=== PATIENT | female | born 1955 | race African-American/Black ===

== ENCOUNTER 2016-02-13 12:45 | Outpatient (CLI) | payer MEDICAID ==
[~2016-02-13] VITALS: Ht 165.1 cm; Wt 69.5 kg
[~2016-02-13 12:45] MED LIST: DESYREL 50MG50 MG PO; IMODIUM A-D2 MG PO; PURINETHOL 50MG50 MG PO; WELLBUTRIN XL150 MG PO; ZOFRAN 4MG T4 MG/TAB PO
[2016-02-13 13:32] LABS: MEAN CELL VOLUME 113 fl (80.0-100.0); MEAN CORPUSCULAR HGB CONC 33 g/dl (33.0-37.0); PLATELET COUNT 271 K/mm3 (130-400); REDCELL DISTRIBUTION WIDTH-CV 15.6 % (11.5-14.5); WHITE BLOOD COUNT 2.1 K/mm3 (4.8-10.8)
[2016-02-13 13:54] LABS: BILIRUBIN,DIRECT 0.4 mg/dL (0.0-0.4); BILIRUBIN,TOTAL 0.9 mg/dL (0.0-1.0); TOTAL PROTEIN 7.4 gm/dL (6.4-8.2)
[2016-02-13 13:55] LABS: HEMATOCRIT 31.6 % (37.0-47.0); HEMOGLOBIN 10.4 g/dl (12.5-16.0); MEAN CORPUSCULAR HEMOGLOBIN 37 pg (27.0-31.0)
[2016-02-13 14:33] VITALS: BP 114/65; PULSE 65; TEMP 98
== END 2016-02-13 16:11 | disposition home or self-care (01) ==
LOC: EUO 12:45
PROVIDERS: Internal Medicine Gastroenterology
DX: K50.80 Crohn's disease of both small and large intestine without complications (principal)
CPT/HCPCS: J3380; J7050

== ENCOUNTER → 2016-02-26 | Outpatient (CLI) | payer MEDICAID ==
[~2016-02-26] MED LIST changes: +PROTONIX20 MG PO
== END ==
LOC: COL.RAD 07:43
DX: N28.1 Cyst of kidney, acquired (principal); R10.13 Epigastric pain; K50.90 Crohn's disease, unspecified, without complications

== ENCOUNTER → 2016-03-30 | Outpatient (CLI) | payer MEDICAID | LOC: COL.RAD 07:04 | DX: K50.80 Crohn's disease of both small and large intestine without complications (principal) | CPT/HCPCS: Q9967 ==

== ENCOUNTER 2016-04-09 12:39 | Outpatient (CLI) | payer MEDICAID ==
[~2016-04-09] VITALS: Ht 165.1 cm; Wt 70.0 kg
[~2016-04-09 12:39] MED LIST changes: -PROTONIX20 MG PO
[2016-04-09 13:51] LABS: ALBUMIN 4.3 gm/dL (3.5-5.0); BILIRUBIN,DIRECT 0.3 mg/dL (0.0-0.4); BILIRUBIN,TOTAL 0.9 mg/dL (0.0-1.0); TOTAL PROTEIN 8.2 gm/dL (6.4-8.2)
[2016-04-09 13:54] LABS: MEAN CORPUSCULAR HGB CONC 33 g/dl (33.0-37.0); MEAN PLATELET VOLUME 9.1 fl (7.4-10.4); PLATELET COUNT 252 K/mm3 (130-400); RED BLOOD COUNT 2.91 M/mm3 (4.10-5.30); REDCELL DISTRIBUTION WIDTH-CV 14.6 % (11.5-14.5); WHITE BLOOD COUNT 2.3 K/mm3 (4.8-10.8)
[2016-04-09 13:56] LABS: HEMATOCRIT 32.3 % (37.0-47.0); HEMOGLOBIN 10.8 g/dl (12.5-16.0); MEAN CELL VOLUME 111 fl (80.0-100.0); MEAN CORPUSCULAR HEMOGLOBIN 37 pg (27.0-31.0)
[2016-04-09 14:48] VITALS: BP 115/62; PULSE 65; TEMP 98.2
== END 2016-04-09 15:35 | disposition home or self-care (01) ==
LOC: EUO 12:39
PROVIDERS: Internal Medicine Gastroenterology
DX: K50.80 Crohn's disease of both small and large intestine without complications (principal)
CPT/HCPCS: J3380; J7050

== ENCOUNTER 2016-06-09 09:54 | Outpatient (CLI) | payer MEDICAID ==
[~2016-06-09] VITALS: Ht 165.1 cm; Wt 72.7 kg
[2016-06-09 10:40] LABS: ALBUMIN 3.6 gm/dL (3.5-5.0); BILIRUBIN,TOTAL 1.2 mg/dL (0.0-1.0); TOTAL PROTEIN 6.7 gm/dL (6.4-8.2)
[2016-06-09 10:42] LABS: MEAN CELL VOLUME 116 fl (80.0-100.0); MEAN CORPUSCULAR HGB CONC 33 g/dl (33.0-37.0); MEAN PLATELET VOLUME 9.1 fl (7.4-10.4); PLATELET COUNT 285 K/mm3 (130-400); RED BLOOD COUNT 2.57 M/mm3 (4.10-5.30); REDCELL DISTRIBUTION WIDTH-CV 16.4 % (11.5-14.5); WHITE BLOOD COUNT 2.4 K/mm3 (4.8-10.8)
[2016-06-09 10:59] LABS: BILIRUBIN,DIRECT 0.4 mg/dL (0.0-0.4); HEMATOCRIT 29.7 % (37.0-47.0); HEMOGLOBIN 9.8 g/dl (12.5-16.0); MEAN CORPUSCULAR HEMOGLOBIN 38 pg (27.0-31.0)
[2016-06-09 11:40] VITALS: BP 122/63; PULSE 51; TEMP 98.4
== END 2016-06-09 14:08 | disposition home or self-care (01) ==
LOC: EUO 09:54
PROVIDERS: Internal Medicine Gastroenterology
DX: K50.80 Crohn's disease of both small and large intestine without complications (principal)
CPT/HCPCS: J3380; J7050

== ENCOUNTER 2016-08-05 09:34 | Outpatient (CLI) | payer MEDICAID ==
[~2016-08-05] VITALS: Ht 165.1 cm; Wt 70.4 kg
[2016-08-05 10:08] LABS: MEAN CELL VOLUME 106 fl (80.0-100.0); MEAN CORPUSCULAR HGB CONC 33 g/dl (33.0-37.0); MEAN PLATELET VOLUME 9.7 fl (7.4-10.4); PLATELET COUNT 277 K/mm3 (130-400); RED BLOOD COUNT 3.28 M/mm3 (4.10-5.30); REDCELL DISTRIBUTION WIDTH-CV 14.5 % (11.5-14.5); WHITE BLOOD COUNT 4.4 K/mm3 (4.8-10.8)
[2016-08-05 10:09] LABS: HEMATOCRIT 34.7 % (37.0-47.0); HEMOGLOBIN 11.4 g/dl (12.5-16.0); MEAN CORPUSCULAR HEMOGLOBIN 35 pg (27.0-31.0)
[2016-08-05] MEDS ORDERED: PROTONIX20 MG PO (10:11)
[2016-08-05 10:13] VITALS: BP 123/73; PULSE 77; TEMP 98.1
[2016-08-05 10:22] LABS: ALBUMIN 4.2 gm/dL (3.5-5.0); BILIRUBIN,DIRECT 0.6 mg/dL (0.0-0.4); BILIRUBIN,TOTAL 0.6 mg/dL (0.0-1.0); TOTAL PROTEIN 8.5 gm/dL (6.4-8.2)
== END 2016-08-05 11:57 | disposition home or self-care (01) ==
LOC: EUO 09:34
PROVIDERS: Internal Medicine Gastroenterology
DX: K50.80 Crohn's disease of both small and large intestine without complications (principal); Z79.899 Other long term (current) drug therapy
CPT/HCPCS: J3380; J7050

== ENCOUNTER → 2016-08-18 | Outpatient (CLI) | payer MEDICAID ==
[~2016-08-18] MED LIST changes: +PROTONIX20 MG PO
== END ==
LOC: MC.RAD 11:30
DX: Z12.31 Encounter for screening mammogram for malignant neoplasm of breast (principal)

== ENCOUNTER 2016-09-29 09:38 | Outpatient (CLI) | payer MEDICAID ==
[~2016-09-29] VITALS: Ht 165.1 cm; Wt 71.1 kg
[2016-09-29 10:15] LABS: HEMATOCRIT 32.3 % (37.0-47.0); HEMOGLOBIN 10.3 g/dl (12.5-16.0); MEAN CELL VOLUME 99 fl (80.0-100.0); MEAN CORPUSCULAR HEMOGLOBIN 31 pg (27.0-31.0); MEAN CORPUSCULAR HGB CONC 32 g/dl (33.0-37.0); MEAN PLATELET VOLUME 10.2 fl (7.4-10.4); PLATELET COUNT 191 K/mm3 (130-400); RED BLOOD COUNT 3.27 M/mm3 (4.10-5.30); WHITE BLOOD COUNT 3.1 K/mm3 (4.8-10.8)
[2016-09-29 11:14] LABS: ALBUMIN 4.1 gm/dL (3.5-5.0); TOTAL PROTEIN 7.9 gm/dL (6.4-8.2)
[2016-09-29 11:21] VITALS: BP 139/76; PULSE 64; TEMP 98.2
[2016-09-29 11:32] LABS: BILIRUBIN,TOTAL 0.6 mg/dL (0.0-1.0)
== END 2016-09-29 12:25 | disposition home or self-care (01) ==
LOC: EUO 09:38
PROVIDERS: Internal Medicine Gastroenterology
DX: K50.80 Crohn's disease of both small and large intestine without complications (principal); Z79.899 Other long term (current) drug therapy
CPT/HCPCS: J3380; J7050

== ENCOUNTER → 2016-12-01 | Outpatient (CLI) | payer MEDICAID ==
[~2016-12-01] VITALS: Ht 165.1 cm; Wt 69.6 kg
[2016-12-01 13:53] LABS: MEAN CELL VOLUME 96 fl (80.0-100.0); MEAN CORPUSCULAR HGB CONC 32 g/dl (33.0-37.0); MEAN PLATELET VOLUME 9.6 fl (7.4-10.4); PLATELET COUNT 188 K/mm3 (130-400); RED BLOOD COUNT 3.74 M/mm3 (4.10-5.30); WHITE BLOOD COUNT 3.5 K/mm3 (4.8-10.8)
[2016-12-01 13:56] LABS: HEMATOCRIT 35.8 % (37.0-47.0); HEMOGLOBIN 11.4 g/dl (12.5-16.0); MEAN CORPUSCULAR HEMOGLOBIN 30 pg (27.0-31.0)
[2016-12-01 14:03] LABS: ALBUMIN 3.9 gm/dL (3.5-5.0); BILIRUBIN UNCONJUGATED 0.3 mg/dL (0.0-1.1); BILIRUBIN,DIRECT 0.2 mg/dL (0.0-0.4); BILIRUBIN,TOTAL 0.5 mg/dL (0.0-1.0); TOTAL PROTEIN 7.6 gm/dL (6.4-8.2)
[2016-12-01 15:00] VITALS: BP 132/69; PULSE 77; TEMP 98.4
== END ==
LOC: EUO 10-06 10:00
PROVIDERS: Internal Medicine Gastroenterology
DX: K50.80 Crohn's disease of both small and large intestine without complications (principal); Z79.899 Other long term (current) drug therapy
CPT/HCPCS: J3380; J7050

== ENCOUNTER 2017-02-02 12:08 | Outpatient (CLI) | payer MEDICAID ==
[2017-02-02 12:38] LABS: HEMATOCRIT 37.5 % (37.0-47.0); MEAN CELL VOLUME 97 fl (80.0-100.0); MEAN CORPUSCULAR HEMOGLOBIN 30 pg (27.0-31.0); MEAN CORPUSCULAR HGB CONC 31 g/dl (33.0-37.0); MEAN PLATELET VOLUME 9.1 fl (7.4-10.4); PLATELET COUNT 182 K/mm3 (130-400); RED BLOOD COUNT 3.87 M/mm3 (4.10-5.30); WHITE BLOOD COUNT 2.8 K/mm3 (4.8-10.8)
[2017-02-02 12:42] LABS: HEMOGLOBIN 11.7 g/dl (12.5-16.0)
[2017-02-02 13:00] LABS: ALBUMIN 4.1 gm/dL (3.5-5.0); TOTAL PROTEIN 7.7 gm/dL (6.4-8.2)
[2017-02-02 13:02] LABS: BILIRUBIN UNCONJUGATED 0.4 mg/dL (0.0-1.1); BILIRUBIN,DIRECT 0.2 mg/dL (0.0-0.4); BILIRUBIN,TOTAL 0.6 mg/dL (0.0-1.0)
[2017-02-02 14:09] VITALS: BP 147/71; PULSE 52; TEMP 97.9
== END 2017-02-02 14:45 | disposition home or self-care (01) ==
LOC: EUO 12:08
PROVIDERS: Internal Medicine Gastroenterology
DX: K50.80 Crohn's disease of both small and large intestine without complications (principal); Z79.899 Other long term (current) drug therapy
CPT/HCPCS: J3380; J7050

== ENCOUNTER 2017-04-04 12:41 | Outpatient (CLI) | payer MEDICAID ==
[~2017-04-04] VITALS: Ht 165.1 cm; Wt 66.8 kg
[2017-04-04 13:19] LABS: HEMATOCRIT 39.7 % (37.0-47.0); HEMOGLOBIN 12.3 g/dl (12.5-16.0); MEAN CELL VOLUME 100 fl (80.0-100.0); MEAN CORPUSCULAR HEMOGLOBIN 31 pg (27.0-31.0); MEAN CORPUSCULAR HGB CONC 31 g/dl (33.0-37.0); MEAN PLATELET VOLUME 9.5 fl (7.4-10.4); PLATELET COUNT 169 K/mm3 (130-400); RED BLOOD COUNT 3.99 M/mm3 (4.10-5.30); REDCELL DISTRIBUTION WIDTH-CV 14.1 % (11.5-14.5)
[2017-04-04 13:21] VITALS: BP 144/72; PULSE 61; TEMP 98
[2017-04-04 13:39] LABS: ALBUMIN 3.9 gm/dL (3.5-5.0); BILIRUBIN UNCONJUGATED 0.4 mg/dL (0.0-1.1); BILIRUBIN,DIRECT 0.2 mg/dL (0.0-0.4); BILIRUBIN,TOTAL 0.6 mg/dL (0.0-1.0); TOTAL PROTEIN 7.5 gm/dL (6.4-8.2)
== END 2017-04-04 15:35 | disposition home or self-care (01) ==
LOC: EUO 12:41
PROVIDERS: Internal Medicine Gastroenterology
DX: K50.80 Crohn's disease of both small and large intestine without complications (principal)
CPT/HCPCS: J3380; J7050

== ENCOUNTER 2017-05-30 12:32 | Outpatient (CLI) | payer MEDICAID ==
[~2017-05-30] VITALS: Ht 165.1 cm; Wt 63.0 kg
[2017-05-30 12:53] LABS: HEMATOCRIT 42.7 % (37.0-47.0); HEMOGLOBIN 14.2 g/dl (12.5-16.0); MEAN CELL VOLUME 98 fl (80.0-100.0); MEAN CORPUSCULAR HEMOGLOBIN 32 pg (27.0-31.0); MEAN CORPUSCULAR HGB CONC 33 g/dl (33.0-37.0); MEAN PLATELET VOLUME 9.5 fl (7.4-10.4); PLATELET COUNT 217 K/mm3 (130-400); RED BLOOD COUNT 4.38 M/mm3 (4.10-5.30); REDCELL DISTRIBUTION WIDTH-CV 14.4 % (11.5-14.5)
[2017-05-30 12:56] VITALS: BP 125/74; PULSE 67; TEMP 97.8
[2017-05-30 13:02] LABS: ALBUMIN 4.3 gm/dL (3.5-5.0); BILIRUBIN UNCONJUGATED 0.3 mg/dL (0.0-1.1); BILIRUBIN,DIRECT 0.2 mg/dL (0.0-0.4); BILIRUBIN,TOTAL 0.6 mg/dL (0.0-1.0); TOTAL PROTEIN 8.6 gm/dL (6.4-8.2)
== END 2017-05-30 15:03 | disposition home or self-care (01) ==
LOC: EUO 12:32
PROVIDERS: Internal Medicine Gastroenterology
DX: K50.80 Crohn's disease of both small and large intestine without complications (principal); Z79.899 Other long term (current) drug therapy
CPT/HCPCS: J3380; J7050

== ENCOUNTER → 2017-06-28 | Outpatient (CLI) | payer MEDICAID | LOC: COL.RAD 08:46 | DX: N28.89 Other specified disorders of kidney and ureter (principal); K50.80 Crohn's disease of both small and large intestine without complications | CPT/HCPCS: Q9967 ==

== ENCOUNTER 2017-07-19 12:34 | Day surgery (SDC) | payer MEDICAID ==
[~2017-07-19] VITALS: Ht 165.1 cm; Wt 62.2 kg
[2017-07-19 13:17] VITALS: BP 120/79; PULSE 93; TEMP 98.3
[2017-07-19] MEDS ORDERED: BENTYL 10MG10 MG/CAP PO (13:17)
[2017-07-19 14:40] VITALS: BP 113/68; PULSE 66; TEMP 97.5
[2017-07-19 14:55] VITALS: BP 117/71; PULSE 66
[2017-07-19 15:10] VITALS: BP 125/82; PULSE 61
== END 2017-07-19 15:32 | disposition home or self-care (01) ==
LOC: SDCO 12:34
DX: K52.89 Other specified noninfective gastroenteritis and colitis (principal); K50.119 Crohn's disease of large intestine with unspecified complications; K63.89 Other specified diseases of intestine; K64.4 Residual hemorrhoidal skin tags; R19.7 Diarrhea, unspecified; K21.9 Gastro-esophageal reflux disease without esophagitis; G43.909 Migraine, unspecified, not intractable, without status migrainosus; F17.210 Nicotine dependence, cigarettes, uncomplicated; F32.9 Major depressive disorder, single episode, unspecified; Z90.710 Acquired absence of both cervix and uterus; Z90.49 Acquired absence of other specified parts of digestive tract
CPT/HCPCS: OP; J2704; J3010; J7030

== ENCOUNTER 2017-07-29 08:55 | Outpatient (CLI) | payer MEDICAID ==
[~2017-07-29] VITALS: Ht 165.1 cm; Wt 63.4 kg
[~2017-07-29 08:55] MED LIST changes: +BENTYL 10MG10 MG/CAP PO
[2017-07-29 09:46] LABS: HEMATOCRIT 43.1 % (37.0-47.0); HEMOGLOBIN 14.1 g/dl (12.5-16.0); MEAN CELL VOLUME 98 fl (80.0-100.0); MEAN CORPUSCULAR HEMOGLOBIN 32 pg (27.0-31.0); MEAN CORPUSCULAR HGB CONC 33 g/dl (33.0-37.0); MEAN PLATELET VOLUME 9.4 fl (7.4-10.4); PLATELET COUNT 208 K/mm3 (130-400); RED BLOOD COUNT 4.42 M/mm3 (4.10-5.30); REDCELL DISTRIBUTION WIDTH-CV 13.9 % (11.5-14.5)
[2017-07-29 09:54] LABS: ALBUMIN 4.2 gm/dL (3.5-5.0); BILIRUBIN,TOTAL 0.3 mg/dL (0.0-1.0); TOTAL PROTEIN 8.9 gm/dL (6.4-8.2)
[2017-07-29 10:00] VITALS: BP 112/72; PULSE 69; TEMP 97.7
[2017-07-29 10:20] LABS: BILIRUBIN UNCONJUGATED 0.2 mg/dL (0.0-1.1); BILIRUBIN,DIRECT 0.3 mg/dL (0.0-0.4)
== END 2017-07-29 10:41 | disposition home or self-care (01) ==
LOC: EUO 08:55
PROVIDERS: Internal Medicine Gastroenterology
DX: K50.80 Crohn's disease of both small and large intestine without complications (principal)
CPT/HCPCS: J3380; J7050

== ENCOUNTER → 2017-08-23 | Outpatient (CLI) | payer MEDICAID | LOC: MC.RAD 10:21 | DX: Z12.31 Encounter for screening mammogram for malignant neoplasm of breast (principal) ==

== ENCOUNTER 2017-09-23 12:34 | Outpatient (CLI) | payer MEDICAID ==
[~2017-09-23] VITALS: Ht 165.1 cm; Wt 62.7 kg
[2017-09-23 13:40] LABS: HEMATOCRIT 42.4 % (37.0-47.0); HEMOGLOBIN 13.9 g/dl (12.5-16.0); MEAN CELL VOLUME 99 fl (80.0-100.0); MEAN CORPUSCULAR HEMOGLOBIN 33 pg (27.0-31.0); MEAN CORPUSCULAR HGB CONC 33 g/dl (33.0-37.0); MEAN PLATELET VOLUME 8.9 fl (7.4-10.4); PLATELET COUNT 179 K/mm3 (130-400); RED BLOOD COUNT 4.28 M/mm3 (4.10-5.30); REDCELL DISTRIBUTION WIDTH-CV 13.2 % (11.5-14.5)
[2017-09-23 13:51] LABS: ALBUMIN 4.1 gm/dL (3.5-5.0); BILIRUBIN UNCONJUGATED 0.4 mg/dL (0.0-1.1); BILIRUBIN,DIRECT 0.2 mg/dL (0.0-0.4); BILIRUBIN,TOTAL 0.5 mg/dL (0.0-1.0); TOTAL PROTEIN 7.9 gm/dL (6.4-8.2)
== END 2017-09-23 15:43 | disposition home or self-care (01) ==
LOC: EUO 12:34
PROVIDERS: Internal Medicine Gastroenterology
DX: K50.80 Crohn's disease of both small and large intestine without complications (principal); Z79.899 Other long term (current) drug therapy
CPT/HCPCS: J3380; J7050

== ENCOUNTER 2017-11-22 13:46 | Outpatient (CLI) | payer MEDICAID ==
[2017-11-22 14:30] LABS: HEMATOCRIT 42.5 % (37.0-47.0); HEMOGLOBIN 13.6 g/dl (12.5-16.0); MEAN CELL VOLUME 102 fl (80.0-100.0); MEAN CORPUSCULAR HEMOGLOBIN 33 pg (27.0-31.0); MEAN CORPUSCULAR HGB CONC 32 g/dl (33.0-37.0); MEAN PLATELET VOLUME 9.7 fl (7.4-10.4); PLATELET COUNT 171 K/mm3 (130-400); RED BLOOD COUNT 4.15 M/mm3 (4.10-5.30); REDCELL DISTRIBUTION WIDTH-CV 13.3 % (11.5-14.5)
[2017-11-22 14:41] LABS: BILIRUBIN UNCONJUGATED 0.4 mg/dL (0.0-1.1); BILIRUBIN,DIRECT 0.1 mg/dL (0.0-0.4); BILIRUBIN,TOTAL 0.5 mg/dL (0.0-1.0); TOTAL PROTEIN 7.7 gm/dL (6.4-8.2)
[2017-11-22 15:30] VITALS: BP 123/66; PULSE 64; TEMP 98
== END 2017-11-22 18:00 | disposition home or self-care (01) ==
LOC: EUO 13:46
PROVIDERS: Internal Medicine Gastroenterology
DX: K50.80 Crohn's disease of both small and large intestine without complications (principal)
CPT/HCPCS: J3380; J7050

== ENCOUNTER 2018-01-24 13:00 | Outpatient (RCR) | payer MEDICAID ==
[~2018-01-24] VITALS: Ht 165.1 cm; Wt 64.8 kg
[2018-01-24 13:43] LABS: HEMATOCRIT 44.4 % (37.0-47.0); HEMOGLOBIN 14.5 g/dl (12.5-16.0); MEAN CELL VOLUME 101 fl (80.0-100.0); MEAN CORPUSCULAR HEMOGLOBIN 33 pg (27.0-31.0); MEAN CORPUSCULAR HGB CONC 33 g/dl (33.0-37.0); MEAN PLATELET VOLUME 9.3 fl (7.4-10.4); PLATELET COUNT 221 K/mm3 (130-400); RED BLOOD COUNT 4.39 M/mm3 (4.10-5.30)
[2018-01-24 13:55] LABS: ALBUMIN 4.4 gm/dL (3.5-5.0); BILIRUBIN UNCONJUGATED 0.4 mg/dL (0.0-1.1); BILIRUBIN,DIRECT 0.2 mg/dL (0.0-0.4); BILIRUBIN,TOTAL 0.6 mg/dL (0.0-1.0); TOTAL PROTEIN 8.3 gm/dL (6.4-8.2)
[2018-01-24 14:35] VITALS: BP 123/68; PULSE 72; TEMP 97.9
[2018-01-24 14:45] VITALS: BP 122/62; PULSE 70; TEMP 97.9
[2018-01-24 14:55] VITALS: BP 114/64; PULSE 73; TEMP 97.9
[2018-01-24 15:05] VITALS: BP 112/62; PULSE 70; TEMP 97.9
[2018-01-24 15:15] VITALS: BP 115/62; PULSE 75; TEMP 97.9
== END 2018-01-24 16:30 | disposition home or self-care (01) ==
LOC: EUO 13:00
PROVIDERS: Internal Medicine Gastroenterology
DX: K50.80 Crohn's disease of both small and large intestine without complications (principal)
CPT/HCPCS: J3380; J7050

== ENCOUNTER 2018-03-22 12:57 | Outpatient (CLI) | payer MEDICAID ==
[~2018-03-22] VITALS: Ht 165.1 cm; Wt 65.5 kg
[2018-03-22 13:20] LABS: HEMATOCRIT 45.4 % (37.0-47.0); HEMOGLOBIN 14.5 g/dl (12.5-16.0); MEAN CELL VOLUME 102 fl (80.0-100.0); MEAN CORPUSCULAR HEMOGLOBIN 33 pg (27.0-31.0); MEAN CORPUSCULAR HGB CONC 32 g/dl (33.0-37.0); MEAN PLATELET VOLUME 9.2 fl (7.4-10.4); PLATELET COUNT 187 K/mm3 (130-400); RED BLOOD COUNT 4.46 M/mm3 (4.10-5.30)
[2018-03-22 13:40] LABS: ALBUMIN 4.3 gm/dL (3.5-5.0); BILIRUBIN UNCONJUGATED 0.3 mg/dL (0.0-1.1); BILIRUBIN,DIRECT 0.1 mg/dL (0.0-0.4); BILIRUBIN,TOTAL 0.4 mg/dL (0.0-1.0)
[2018-03-22 14:06] VITALS: BP 123/59; PULSE 73; TEMP 98.1
== END 2018-03-22 14:51 | disposition home or self-care (01) ==
LOC: EUO 12:57
PROVIDERS: Internal Medicine Gastroenterology
DX: K50.80 Crohn's disease of both small and large intestine without complications (principal); Z79.899 Other long term (current) drug therapy
CPT/HCPCS: J3380; J7050

== ENCOUNTER 2018-05-17 12:44 | Outpatient (CLI) | payer MEDICAID ==
[~2018-05-17] VITALS: Ht 165.1 cm; Wt 69.5 kg
[2018-05-17 13:20] LABS: HEMATOCRIT 40.8 % (37.0-47.0); HEMOGLOBIN 13.3 g/dl (12.5-16.0); MEAN CELL VOLUME 101 fl (80.0-100.0); MEAN CORPUSCULAR HEMOGLOBIN 33 pg (27.0-31.0); MEAN CORPUSCULAR HGB CONC 33 g/dl (33.0-37.0); MEAN PLATELET VOLUME 8.9 fl (7.4-10.4); PLATELET COUNT 181 K/mm3 (130-400); RED BLOOD COUNT 4.06 M/mm3 (4.10-5.30); REDCELL DISTRIBUTION WIDTH-CV 13.2 % (11.5-14.5)
[2018-05-17 13:30] LABS: ALBUMIN 3.9 gm/dL (3.5-5.0); BILIRUBIN UNCONJUGATED 0.4 mg/dL (0.0-1.1); BILIRUBIN,DIRECT 0.1 mg/dL (0.0-0.4); BILIRUBIN,TOTAL 0.4 mg/dL (0.0-1.0); TOTAL PROTEIN 7.4 gm/dL (6.4-8.2)
[2018-05-17 13:38] VITALS: BP 108/63; PULSE 67; TEMP 98
== END 2018-05-17 15:10 | disposition home or self-care (01) ==
LOC: EUO 12:44
PROVIDERS: Internal Medicine Gastroenterology
DX: K50.80 Crohn's disease of both small and large intestine without complications (principal); Z79.899 Other long term (current) drug therapy
CPT/HCPCS: J3380; J7050

== ENCOUNTER 2018-07-19 14:56 | Outpatient (CLI) | payer MEDICAID ==
[~2018-07-19] VITALS: Ht 165.1 cm; Wt 64.0 kg
[2018-07-19 15:10] VITALS: BP 93/60; PULSE 76; TEMP 98.1
[2018-07-19 15:19] LABS: HEMATOCRIT 48.5 % (37.0-47.0); MEAN CELL VOLUME 99 fl (80.0-100.0); MEAN CORPUSCULAR HEMOGLOBIN 33 pg (27.0-31.0); MEAN CORPUSCULAR HGB CONC 33 g/dl (33.0-37.0); PLATELET COUNT 203 K/mm3 (130-400); RED BLOOD COUNT 4.89 M/mm3 (4.10-5.30); REDCELL DISTRIBUTION WIDTH-CV 12.9 % (11.5-14.5)
[2018-07-19 16:40] VITALS: BP 96/53; PULSE 64
[2018-07-19] MEDS ORDERED: ADVIL200 MG PO (16:40)
== END 2018-07-19 16:41 | disposition home or self-care (01) ==
LOC: EUO 14:56
PROVIDERS: Internal Medicine Gastroenterology
DX: K50.80 Crohn's disease of both small and large intestine without complications (principal); Z79.899 Other long term (current) drug therapy
CPT/HCPCS: J3380; J7050

== ENCOUNTER 2018-09-13 14:12 | Outpatient (CLI) | payer MEDICAID ==
[~2018-09-13] VITALS: Ht 165.1 cm; Wt 63.2 kg
[~2018-09-13 14:12] MED LIST changes: +ADVIL200 MG PO
[2018-09-13 15:17] LABS: HEMATOCRIT 43.7 % (37.0-47.0); HEMOGLOBIN 14.3 g/dl (12.5-16.0); MEAN CELL VOLUME 101 fl (80.0-100.0); MEAN CORPUSCULAR HEMOGLOBIN 33 pg (27.0-31.0); MEAN CORPUSCULAR HGB CONC 33 g/dl (33.0-37.0); MEAN PLATELET VOLUME 8.9 fl (7.4-10.4); PLATELET COUNT 154 K/mm3 (130-400); RED BLOOD COUNT 4.32 M/mm3 (4.10-5.30); REDCELL DISTRIBUTION WIDTH-CV 13.3 % (11.5-14.5)
[2018-09-13 15:27] LABS: ALBUMIN 3.9 gm/dL (3.5-5.0); BILIRUBIN UNCONJUGATED 0.6 mg/dL (0.0-1.1); BILIRUBIN,TOTAL 0.5 mg/dL (0.0-1.0); TOTAL PROTEIN 7.7 gm/dL (6.4-8.2)
[2018-09-13 16:07] VITALS: BP 104/69; PULSE 71; TEMP 97.6
[2018-09-13] MEDS ORDERED: VITAMIN D 50,1.25 MG PO (16:10)
[2018-09-13] MEDS ORDERED: ANTIVERT 25MG25 MG PO (16:11)
== END 2018-09-13 17:04 | disposition home or self-care (01) ==
LOC: EUO 14:12
PROVIDERS: Internal Medicine Gastroenterology
DX: K50.80 Crohn's disease of both small and large intestine without complications (principal); Z79.899 Other long term (current) drug therapy
CPT/HCPCS: J3380; J7050

== ENCOUNTER → 2018-10-12 | Outpatient (CLI) | payer MEDICAID ==
[~2018-10-12] MED LIST changes: +ANTIVERT 25MG25 MG PO; +VITAMIN D 50,1.25 MG PO
== END ==
LOC: MC.RAD 10-02 11:15
DX: Z12.31 Encounter for screening mammogram for malignant neoplasm of breast (principal)

== ENCOUNTER 2018-11-15 10:53 | Outpatient (CLI) | payer MEDICAID ==
[~2018-11-15] VITALS: Ht 165.1 cm; Wt 64.0 kg
[2018-11-15 11:27] VITALS: BP 118/71; PULSE 69; TEMP 97.7
[2018-11-15 11:32] LABS: ALBUMIN 4.6 gm/dL (3.5-5.0); BILIRUBIN UNCONJUGATED 0.5 mg/dL (0.0-1.1); BILIRUBIN,DIRECT 0.1 mg/dL (0.0-0.4); BILIRUBIN,TOTAL 0.5 mg/dL (0.0-1.0); TOTAL PROTEIN 8.5 gm/dL (6.4-8.2)
[2018-11-15 11:36] LABS: HEMATOCRIT 45.2 % (37.0-47.0); HEMOGLOBIN 14.5 g/dl (12.5-16.0); MEAN CELL VOLUME 103 fl (80.0-100.0); MEAN CORPUSCULAR HEMOGLOBIN 33 pg (27.0-31.0); MEAN CORPUSCULAR HGB CONC 32 g/dl (33.0-37.0); MEAN PLATELET VOLUME 9.4 fl (7.4-10.4); PLATELET COUNT 209 K/mm3 (130-400); REDCELL DISTRIBUTION WIDTH-CV 13.3 % (11.5-14.5)
== END 2018-11-15 15:21 | disposition home or self-care (01) ==
LOC: EUO 10:53
PROVIDERS: Internal Medicine Gastroenterology
DX: K50.80 Crohn's disease of both small and large intestine without complications (principal); Z79.899 Other long term (current) drug therapy
CPT/HCPCS: J3380; J7050

== ENCOUNTER 2019-01-10 10:45 | Outpatient (CLI) | payer MEDICAID ==
[~2019-01-10] VITALS: Ht 165.1 cm; Wt 66.0 kg
[2019-01-10 11:15] LABS: HEMATOCRIT 43.3 % (37.0-47.0); HEMOGLOBIN 14.1 g/dl (12.5-16.0); MEAN CELL VOLUME 100 fl (80.0-100.0); MEAN CORPUSCULAR HEMOGLOBIN 33 pg (27.0-31.0); MEAN CORPUSCULAR HGB CONC 33 g/dl (33.0-37.0); MEAN PLATELET VOLUME 8.8 fl (7.4-10.4); PLATELET COUNT 198 K/mm3 (130-400); RED BLOOD COUNT 4.32 M/mm3 (4.10-5.30); REDCELL DISTRIBUTION WIDTH-CV 12.6 % (11.5-14.5)
[2019-01-10 11:40] VITALS: BP 98/60; PULSE 71; TEMP 97.7
--- NOTE | 2019-01-10 12:50 | NUR ---
Pt bette Entyvio well. Pt discharged per ambulation.
== END 2019-01-10 13:42 | disposition home or self-care (01) ==
LOC: EUO 10:45
PROVIDERS: Internal Medicine Gastroenterology
DX: K50.80 Crohn's disease of both small and large intestine without complications (principal); Z79.899 Other long term (current) drug therapy
CPT/HCPCS: J3380; J7050

== ENCOUNTER 2019-03-13 09:46 | Outpatient (CLI) | payer MEDICAID ==
[~2019-03-13] VITALS: Ht 165.1 cm; Wt 65.4 kg
[2019-03-13 10:07] LABS: HEMATOCRIT 42.8 % (37.0-47.0); HEMOGLOBIN 13.7 g/dl (12.5-16.0); MEAN CELL VOLUME 100 fl (80.0-100.0); MEAN CORPUSCULAR HEMOGLOBIN 32 pg (27.0-31.0); MEAN CORPUSCULAR HGB CONC 32 g/dl (33.0-37.0); MEAN PLATELET VOLUME 8.9 fl (7.4-10.4); PLATELET COUNT 197 K/mm3 (130-400); RED BLOOD COUNT 4.29 M/mm3 (4.10-5.30); REDCELL DISTRIBUTION WIDTH-CV 13.1 % (11.5-14.5)
[2019-03-13 11:14] VITALS: BP 155/88; PULSE 69; TEMP 97.5
[2019-03-13 12:34] VITALS: BP 148/75; PULSE 72; TEMP 97.6
== END 2019-03-13 11:55 | disposition home or self-care (01) ==
LOC: EUO 09:46
PROVIDERS: Internal Medicine Gastroenterology
DX: K50.80 Crohn's disease of both small and large intestine without complications (principal); Z79.899 Other long term (current) drug therapy
CPT/HCPCS: J3380; J7050

== ENCOUNTER 2019-07-03 12:55 | Outpatient (CLI) | payer MEDICAID ==
[~2019-07-03] VITALS: Ht 165.1 cm; Wt 57.0 kg
[2019-07-03 13:21] LABS: HEMATOCRIT 42.5 % (37.0-47.0); HEMOGLOBIN 13.8 g/dl (12.5-16.0); MEAN CELL VOLUME 100 fl (80.0-100.0); MEAN CORPUSCULAR HEMOGLOBIN 32 pg (27.0-31.0); MEAN CORPUSCULAR HGB CONC 33 g/dl (33.0-37.0); MEAN PLATELET VOLUME 8.8 fl (7.4-10.4); PLATELET COUNT 199 K/mm3 (130-400); RED BLOOD COUNT 4.26 M/mm3 (4.10-5.30); REDCELL DISTRIBUTION WIDTH-CV 13.2 % (11.5-14.5)
[2019-07-03 14:10] VITALS: BP 128/76; PULSE 74; TEMP 98.5
== END 2019-07-03 14:49 | disposition home or self-care (01) ==
LOC: EUO 12:55
PROVIDERS: Internal Medicine Gastroenterology
DX: K50.80 Crohn's disease of both small and large intestine without complications (principal); Z79.899 Other long term (current) drug therapy
CPT/HCPCS: J3380; J7050

== ENCOUNTER 2019-08-28 12:51 | Outpatient (CLI) | payer MEDICAID ==
[~2019-08-28] VITALS: Ht 165.1 cm; Wt 66.1 kg
[2019-08-28 12:58] VITALS: BP 144/77; PULSE 72; TEMP 98.4
[2019-08-28 13:41] LABS: HEMATOCRIT 41.3 % (37.0-47.0); MEAN CELL VOLUME 101 fl (80.0-100.0); MEAN CORPUSCULAR HEMOGLOBIN 32 pg (27.0-31.0); MEAN CORPUSCULAR HGB CONC 32 g/dl (33.0-37.0); MEAN PLATELET VOLUME 9.5 fl (7.4-10.4); PLATELET COUNT 183 K/mm3 (130-400); RED BLOOD COUNT 4.08 M/mm3 (4.10-5.30); REDCELL DISTRIBUTION WIDTH-CV 13.7 % (11.5-14.5)
[2019-08-28 15:10] VITALS: BP 128/79; PULSE 64; TEMP 98.5
== END 2019-08-28 15:10 | disposition home or self-care (01) ==
LOC: EUO 12:51
PROVIDERS: Internal Medicine Gastroenterology
DX: K50.80 Crohn's disease of both small and large intestine without complications (principal); Z79.899 Other long term (current) drug therapy
CPT/HCPCS: J3380; J7050

== ENCOUNTER 2019-10-31 14:36 | Outpatient (CLI) | payer MEDICAID ==
[2019-10-31 15:09] LABS: HEMATOCRIT 40.9 % (37.0-47.0); HEMOGLOBIN 13.3 g/dl (12.5-16.0); MEAN CELL VOLUME 99 fl (80.0-100.0); MEAN CORPUSCULAR HEMOGLOBIN 32 pg (27.0-31.0); MEAN CORPUSCULAR HGB CONC 33 g/dl (33.0-37.0); MEAN PLATELET VOLUME 8.9 fl (7.4-10.4); PLATELET COUNT 203 K/mm3 (130-400); RED BLOOD COUNT 4.12 M/mm3 (4.10-5.30); REDCELL DISTRIBUTION WIDTH-CV 13.7 % (11.5-14.5)
[2019-10-31 15:40] VITALS: BP 124/82; PULSE 70; TEMP 97.9
[2019-10-31 16:15] VITALS: BP 145/92; PULSE 71
[2019-10-31 16:45] VITALS: BP 127/78; PULSE 66
== END 2019-10-31 16:52 | disposition home or self-care (01) ==
LOC: EUO 14:36
PROVIDERS: Internal Medicine Gastroenterology
DX: K50.80 Crohn's disease of both small and large intestine without complications (principal); Z79.899 Other long term (current) drug therapy
CPT/HCPCS: J3380; J7050

== ENCOUNTER 2019-12-26 10:37 | Outpatient (CLI) | payer MEDICAID ==
[2019-12-26 11:16] LABS: HEMATOCRIT 46.5 % (37.0-47.0); HEMOGLOBIN 14.7 g/dl (12.5-16.0); MEAN CELL VOLUME 100 fl (80.0-100.0); MEAN CORPUSCULAR HEMOGLOBIN 32 pg (27.0-31.0); MEAN CORPUSCULAR HGB CONC 32 g/dl (33.0-37.0); MEAN PLATELET VOLUME 10.3 fl (7.4-10.4); PLATELET COUNT 221 K/mm3 (130-400); RED BLOOD COUNT 4.63 M/mm3 (4.10-5.30); REDCELL DISTRIBUTION WIDTH-CV 13.3 % (11.5-14.5)
[2019-12-26 12:16] VITALS: BP 121/96; PULSE 70; TEMP 98.5
== END 2019-12-26 13:49 | disposition home or self-care (01) ==
LOC: EUO 10:37
PROVIDERS: Internal Medicine Gastroenterology
DX: K50.80 Crohn's disease of both small and large intestine without complications (principal); Z79.899 Other long term (current) drug therapy
CPT/HCPCS: J3380; J7050

== ENCOUNTER 2020-02-20 12:36 | Outpatient (CLI) | payer MEDICAID ==
[~2020-02-20] VITALS: Ht 165.1 cm; Wt 71.2 kg
[2020-02-20 13:45] LABS: HEMATOCRIT 43.4 % (37.0-47.0); HEMOGLOBIN 13.9 g/dl (12.5-16.0); MEAN CELL VOLUME 99 fl (80.0-100.0); MEAN CORPUSCULAR HEMOGLOBIN 32 pg (27.0-31.0); MEAN CORPUSCULAR HGB CONC 32 g/dl (33.0-37.0); MEAN PLATELET VOLUME 9.4 fl (7.4-10.4); PLATELET COUNT 248 K/mm3 (130-400); RED BLOOD COUNT 4.38 M/mm3 (4.10-5.30); REDCELL DISTRIBUTION WIDTH-CV 13.2 % (11.5-14.5)
[2020-02-20] MEDS ORDERED: SARAFEM20 M1 PO (14:55)
[2020-02-20 14:56] VITALS: BP 129/89; PULSE 72; TEMP 98.3
[2020-02-20] MEDS ORDERED: VITAMIN D31000 I1 PO (14:56)
== END 2020-02-20 15:45 | disposition home or self-care (01) ==
LOC: EUO 12:36
PROVIDERS: Internal Medicine Gastroenterology
DX: K50.80 Crohn's disease of both small and large intestine without complications (principal); Z79.899 Other long term (current) drug therapy
CPT/HCPCS: J3380; J7050

== ENCOUNTER 2020-04-16 12:49 | Outpatient (CLI) | payer MEDICAID ==
[~2020-04-16] VITALS: Ht 165.1 cm; Wt 73.1 kg
[~2020-04-16 12:49] MED LIST changes: +SARAFEM20 M1 PO; +VITAMIN D31000 I1 PO
[2020-04-16 13:07] LABS: HEMATOCRIT 42.7 % (37.0-47.0); HEMOGLOBIN 13.9 g/dl (12.5-16.0); MEAN CELL VOLUME 100 fl (80.0-100.0); MEAN CORPUSCULAR HEMOGLOBIN 33 pg (27.0-31.0); MEAN CORPUSCULAR HGB CONC 33 g/dl (33.0-37.0); PLATELET COUNT 222 K/mm3 (130-400); RED BLOOD COUNT 4.28 M/mm3 (4.10-5.30); REDCELL DISTRIBUTION WIDTH-CV 13.2 % (11.5-14.5)
[2020-04-16 14:48] VITALS: BP 161/90; PULSE 70; TEMP 98.1
== END 2020-04-16 15:26 | disposition home or self-care (01) ==
LOC: EUO
PROVIDERS: Internal Medicine Gastroenterology
DX: K50.80 Crohn's disease of both small and large intestine without complications (principal); Z79.899 Other long term (current) drug therapy
CPT/HCPCS: J3380; J7050

== ENCOUNTER 2020-06-13 12:40 | Outpatient (CLI) | payer MEDICAID ==
[~2020-06-13] VITALS: Ht 165.1 cm; Wt 70.8 kg
[2020-06-13 12:59] LABS: HEMATOCRIT 44.1 % (37.0-47.0); HEMOGLOBIN 13.9 g/dl (12.5-16.0); MEAN CELL VOLUME 101 fl (80.0-100.0); MEAN CORPUSCULAR HEMOGLOBIN 32 pg (27.0-31.0); MEAN CORPUSCULAR HGB CONC 32 g/dl (33.0-37.0); MEAN PLATELET VOLUME 8.8 fl (7.4-10.4); PLATELET COUNT 245 K/mm3 (130-400); RED BLOOD COUNT 4.37 M/mm3 (4.10-5.30); REDCELL DISTRIBUTION WIDTH-CV 13.1 % (11.5-14.5)
[2020-06-13 13:16] LABS: ALBUMIN 4.4 gm/dL (3.5-5.0); BILIRUBIN,TOTAL 0.3 mg/dL (0.0-1.0); CALCIUM 9.2 mg/dL (8.4-10.2); CREATININE, serum 1.03 (0.52-1.25); POTASSIUM 3.6 mmol/L (3.4-5.0); TOTAL PROTEIN 8.5 gm/dL (6.4-8.2)
[2020-06-13 15:00] VITALS: BP 144/74; PULSE 66; TEMP 98
== END 2020-06-13 15:49 | disposition home or self-care (01) ==
LOC: EUO 12:40
PROVIDERS: Internal Medicine Gastroenterology
DX: K50.80 Crohn's disease of both small and large intestine without complications (principal); Z79.899 Other long term (current) drug therapy
CPT/HCPCS: J3380; J7050

== ENCOUNTER 2020-08-18 13:46 | Outpatient (CLI) | payer MEDICAID ==
[~2020-08-18] VITALS: Ht 165.1 cm; Wt 70.7 kg
[2020-08-18 14:02] VITALS: BP 129/80; PULSE 73; TEMP 97.8
[2020-08-18 14:04] LABS: BASO % 0.5 % (0.0-2.0); EOS # 0.1 (0.0-0.7); EOS % 3.5 % (0-4.0); GRAN # 2.1 (1.4-6.5); GRAN % 53.3 % (42.2-75.2); HEMATOCRIT 42.3 % (37.0-47.0); HEMOGLOBIN 13.4 g/dl (12.5-16.0); LYMPH # 1.3 (1.2-3.4); LYMPH % 32.3 % (20.0-51.0); MEAN CELL VOLUME 100 fl (80.0-100.0); MEAN CORPUSCULAR HEMOGLOBIN 32 pg (27.0-31.0); MEAN CORPUSCULAR HGB CONC 32 g/dl (33.0-37.0); MEAN PLATELET VOLUME 9.1 fl (7.4-10.4); MONO # 0.4 (0.1-0.6); MONO % 10.1 % (1.7-9.3); PLATELET COUNT 254 K/mm3 (130-400); RED BLOOD COUNT 4.24 M/mm3 (4.10-5.30); REDCELL DISTRIBUTION WIDTH-CV 13.7 % (11.5-14.5)
--- NOTE | 2020-08-18 15:08 | NUR ---
PT STATED SHE HAS HAD A HYSTERECTOMY. HCG SERUM LAB IS NOT NEEDED.
== END 2020-08-18 15:49 | disposition home or self-care (01) ==
LOC: EUO 13:46
PROVIDERS: Internal Medicine Gastroenterology
DX: K50.80 Crohn's disease of both small and large intestine without complications (principal); Z79.899 Other long term (current) drug therapy
CPT/HCPCS: J3380; J7050

== ENCOUNTER 2020-10-14 12:47 | Outpatient (CLI) | payer MEDICAID ==
[~2020-10-14] VITALS: Ht 165.1 cm; Wt 70.0 kg
[2020-10-14 13:08] LABS: MEAN CELL VOLUME 98 fl (80.0-100.0); MEAN CORPUSCULAR HEMOGLOBIN 31 pg (27.0-31.0); MEAN CORPUSCULAR HGB CONC 32 g/dl (33.0-37.0); PLATELET COUNT 245 K/mm3 (130-400); RED BLOOD COUNT 4.49 M/mm3 (4.10-5.30); REDCELL DISTRIBUTION WIDTH-CV 14.1 % (11.5-14.5)
[2020-10-14 13:20] VITALS: BP 136/82; PULSE 67; TEMP 98.2
[2020-10-14 13:39] LABS: BASOPHIL 2 % (0-2); EOSINOPHIL 2 % (0-4); LYMPHOCYTE 28 % (20.0-51.0); NEUTROPHILS 59 % (42.0-75.2)
[2020-10-14 13:40] LABS: HYPOCHROMIA 1+; PLATELET ESTIMATE NORMAL (NORMAL)
== END 2020-10-14 18:05 | disposition home or self-care (01) ==
LOC: EUO 12:47
PROVIDERS: Internal Medicine Gastroenterology
DX: Z79.899 Other long term (current) drug therapy (principal)
CPT/HCPCS: J3380; J7050

== ENCOUNTER 2020-12-23 12:51 | Outpatient (CLI) | payer MEDICAID ==
[~2020-12-23] VITALS: Ht 165.1 cm; Wt 70.6 kg
[2020-12-23 13:29] LABS: BASO % 0.7 % (0.0-2.0); EOS # 0.1 K/mm3 (0.0-0.7); EOS % 2.4 % (0-4.0); GRAN # 2.4 K/mm3 (1.4-6.5); GRAN % 57.9 % (42.2-75.2); HEMATOCRIT 42.9 % (37.0-47.0); HEMOGLOBIN 13.3 g/dl (12.5-16.0); LYMPH # 1.2 K/mm3 (1.2-3.4); LYMPH % 28.8 % (20.0-51.0); MEAN CELL VOLUME 98 fl (80.0-100.0); MEAN CORPUSCULAR HEMOGLOBIN 31 pg (27.0-31.0); MEAN CORPUSCULAR HGB CONC 31 g/dl (33.0-37.0); MEAN PLATELET VOLUME 9.1 fl (7.4-10.4); MONO # 0.4 K/mm3 (0.1-0.6); PLATELET COUNT 265 K/mm3 (130-400); RED BLOOD COUNT 4.36 M/mm3 (4.10-5.30); REDCELL DISTRIBUTION WIDTH-CV 13.8 % (11.5-14.5)
[2020-12-23 13:49] VITALS: BP 145/81; PULSE 70; TEMP 98
== END 2020-12-23 17:27 ==
LOC: EUO 12:51
PROVIDERS: Internal Medicine Gastroenterology
DX: Z79.899 Other long term (current) drug therapy (principal)
CPT/HCPCS: J3380; J7050

== ENCOUNTER 2021-03-03 14:30 | Outpatient (CLI) | payer MEDICAID ==
[2021-03-03 15:18] LABS: BASO % 0.5 % (0.0-2.0); GRAN # 2.7 K/mm3 (1.4-6.5); GRAN % 64.4 % (42.2-75.2); HEMATOCRIT 42.5 % (37.0-47.0); HEMOGLOBIN 13.7 g/dl (12.5-16.0); LYMPH # 0.9 K/mm3 (1.2-3.4); LYMPH % 21.9 % (20.0-51.0); MEAN CELL VOLUME 96 fl (80.0-100.0); MEAN CORPUSCULAR HEMOGLOBIN 31 pg (27-31); MEAN CORPUSCULAR HGB CONC 32 g/dl (33.0-37.0); MEAN PLATELET VOLUME 9.2 fl (7.4-10.4); MONO # 0.5 K/mm3 (0.1-0.6); PLATELET COUNT 218 K/mm3 (130-400); RED BLOOD COUNT 4.41 M/mm3 (4.10-5.30); REDCELL DISTRIBUTION WIDTH-CV 13.7 % (11.5-14.5)
[2021-03-03 16:48] VITALS: BP 136/80; PULSE 66; TEMP 98.2
== END 2021-03-03 17:42 | disposition home or self-care (01) ==
LOC: EUO 14:30
PROVIDERS: Internal Medicine Gastroenterology
DX: K50.90 Crohn's disease, unspecified, without complications (principal); Z79.899 Other long term (current) drug therapy
CPT/HCPCS: J3380; J7050

== ENCOUNTER 2021-04-28 12:36 | Outpatient (CLI) | payer MEDICAID ==
[~2021-04-28] VITALS: Ht 165.1 cm; Wt 68.2 kg
[2021-04-28 13:00] LABS: BASO % 0.5 % (0.0-2.0); EOS # 0.1 K/mm3 (0.0-0.7); EOS % 3.2 % (0.0-4.0); GRAN # 1.9 K/mm3 (1.4-6.5); GRAN % 49.9 % (42.2-75.2); HEMATOCRIT 43.9 % (37.0-47.0); HEMOGLOBIN 14.4 g/dl (12.5-16.0); LYMPH # 1.3 K/mm3 (1.2-3.4); MEAN CELL VOLUME 95 fl (80.0-100.0); MEAN CORPUSCULAR HEMOGLOBIN 31 pg (27-31); MEAN CORPUSCULAR HGB CONC 33 g/dl (33.0-37.0); MONO # 0.4 K/mm3 (0.1-0.6); MONO % 11.1 % (1.7-9.3); PLATELET COUNT 248 K/mm3 (130-400); RED BLOOD COUNT 4.62 M/mm3 (4.10-5.30)
[2021-04-28 13:45] VITALS: BP 141/86; PULSE 68; TEMP 98.3
== END 2021-04-28 15:24 ==
LOC: EUO 12:36
PROVIDERS: Internal Medicine Gastroenterology
DX: K50.90 Crohn's disease, unspecified, without complications (principal)
CPT/HCPCS: J3380; J7050

== ENCOUNTER 2021-06-23 11:23 | Outpatient (CLI) | payer MEDICAID ==
[~2021-06-23] VITALS: Ht 165.1 cm; Wt 65.5 kg
[2021-06-23 11:59] LABS: BASO % 0.5 % (0.0-2.0); EOS # 0.1 K/mm3 (0.0-0.7); EOS % 2.9 % (0.0-4.0); GRAN # 2.1 K/mm3 (1.4-6.5); GRAN % 54.6 % (42.2-75.2); HEMATOCRIT 41.6 % (37.0-47.0); HEMOGLOBIN 13.7 g/dl (12.5-16.0); LYMPH # 1.2 K/mm3 (1.2-3.4); LYMPH % 31.3 % (20.0-51.0); MEAN CELL VOLUME 97 fl (80.0-100.0); MEAN CORPUSCULAR HEMOGLOBIN 32 pg (27-31); MEAN CORPUSCULAR HGB CONC 33 g/dl (33.0-37.0); MEAN PLATELET VOLUME 9.2 fl (7.4-10.4); MONO # 0.4 K/mm3 (0.1-0.6); MONO % 10.7 % (1.7-9.3); PLATELET COUNT 249 K/mm3 (130-400); RED BLOOD COUNT 4.29 M/mm3 (4.10-5.30); REDCELL DISTRIBUTION WIDTH-CV 13.9 % (11.5-14.5)
[2021-06-23 12:38] VITALS: BP 129/77; PULSE 67; TEMP 98.3
== END 2021-06-23 13:30 | disposition home or self-care (01) ==
LOC: EUO 11:23
PROVIDERS: Internal Medicine Gastroenterology
DX: K50.90 Crohn's disease, unspecified, without complications (principal)
CPT/HCPCS: J3380; J7050